=== PATIENT | male | born 1950 | race Caucasian/White ===

== ENCOUNTER 2017-10-14 20:18 | Emergency (ER) | payer BC ==
[~2017-10-14] VITALS: Ht 172.7 cm; Wt 87.1 kg
[2017-10-14 21:02] VITALS: BP 144/80; PULSE 80; RESP 20; TEMP 99.3; O2SAT 95
[2017-10-14] MEDS ORDERED: OMEP40CA2 PO (21:46)
[2017-10-14] MEDS ORDERED: LISI10TA3 PO (21:46)
[2017-10-14] MEDS ORDERED: RANI300T PO (21:46)
[2017-10-14] MEDS ORDERED: LIPI80TA PO (21:46)
[2017-10-14] MEDS ORDERED: EZET1TAB8 PO (21:46)
[2017-10-14] MEDS ORDERED: FLUO1TAB3 PO (21:46)
[2017-10-14] MEDS ORDERED: CETI10CA3 PO (22:53)
[2017-10-14] MEDS ORDERED: PRED20 PO (22:53)
[2017-10-14] MEDS ORDERED: BACT800T5 PO (22:53)
--- NOTE | 2017-10-14 22:54 | PD ---
HPI Chief Complaint: Skin Problem Time Seen by Provider: 22:41 Travel History International Travel<30 days: No Contact w/Intl Traveler<30days: No Traveled to known affect area: No History of Present Illness HPI 67-year-old male complains of scalp itching and painful. Patient states that his symptoms started 2 days ago. Patient states that the pain is burning pain localized to the scalp only. Patient denies any pain radiation. Patient denies any exposure. Patient denies any fever chills. Patient denies any other problem. Patient denies any chest pain shortness of breath. Patient denies abdominal pain. PFSH Past Medical History High Cholesterol: Yes Coronary Artery Disease: Yes Diminished Hearing: No Hypertension: Yes Immunizations Current: Yes (SHINGLES) Tetanus Vaccination: Unknown Influenza Vaccination: Yes ?: Not Past Surgical History Abdominal Surgery: Yes (UMBILICAL HERNIA) Coronary Stent: Yes Social History Alcohol Use: Yes (OCC) Tobacco Use: No Substance Use: No Allergies-Medications (Allergen,Severity, Reaction): Coded Allergies: pyrithione zinc (Verified Allergy, Severe, Itching, 10/14/17) clopidogrel (Verified Allergy, Unknown, 10/14/17) UNKNOWN metronidazole (Verified Allergy, Unknown, 10/14/17) UNKNOWN amoxicillin (Verified Adverse Reaction, Unknown, Diarrhea, 10/14/17) clavulanic acid (Verified Adverse Reaction, Unknown, Nausea/Vomiting, 10/14) Reported Meds & Prescriptions Reported Meds & Active Scripts Active Reported Ezetimibe 10 Mg Tab 10 Mg PO DAILY Ranitidine (Ranitidine HCl) 300 Mg Tab 300 Mg PO DAILY Fluoxetine (Fluoxetine HCl) 20 Mg Tab 20 Mg PO DAILY Omeprazole 40 Mg Cap 40 Mg PO DAILY Lisinopril 10 Mg Tab 10 Mg PO DAILY Lipitor (Atorvastatin Calcium) 80 Mg Tab 80 Mg PO HS Review of Systems General / Constitutional: No: Fever Eyes: No: Visual changes HENT: No: Headaches Cardiovascular: No: Chest Pain or Discomfort Respiratory: No: Shortness of Breath Gastrointestinal: No: Abdominal Pain Genitourinary: No: Dysuria Musculoskeletal: No: Pain Skin: No Rash Neurologic: No: Weakness Psychiatric: No: Depression Endocrine: No: Polydipsia Hematologic/Lymphatic: No: Easy Bruising Physical Exam Narrative GENERAL: Well-nourished, well-developed patient. SKIN: Focused skin assessment warm/dry. HEAD: Normocephalic. EYES: No scleral icterus. No injection or drainage. NECK: Supple, trachea midline. No JVD or lymphadenopathy. CARDIOVASCULAR: Regular rate and rhythm without murmurs, gallops, or rubs. RESPIRATORY: Breath sounds equal bilaterally. No accessory muscle use. GASTROINTESTINAL: Abdomen soft, non-tender, nondistended. MUSCULOSKELETAL: No cyanosis, or edema. BACK: Nontender without obvious deformity. No CVA tenderness. Patient has mild diffuse tenderness on the scalp on palpation. Scalp irritation noted. No heat. Mild redness on the scalp noted. Patient has mild clear discharge. Data Data Last Documented VS Vital Signs Date Time Temp Pulse Resp B/P (MAP) Pulse Ox O2 Delivery O2 Flow Rate FiO2 10/14/17 21:02 99.3 80 20 144/80 (101) 95 Orders Orders Dexamethasone Inj (Decadron Inj) (10/14/17 23:00) Sulfamet-Trimeth Ds 800-160 Mg (Bactrim (10/14/17 23:00) Diphenhydramine (Benadryl) (10/14/17 23:00) [facility] Medical Decision Making Medical Screen Exam Complete: Yes Emergency Medical Condition: Yes Differential Diagnosis Differential diagnosis include contact dermatitis, cellulitis. Narrative Course 67-year-old male with irritation to the scalp itching and burning. Not sure of exposure. Decadron 8 mg IM. Benadryl 25 mg p.o. Bactrim DS 1 tablet p.o. given. Diagnosis Primary Impression: Contact dermatitis Qualified Codes: L25.9 - Unspecified contact dermatitis, unspecified cause Patient Instructions: General Instructions Additional Instructions: Take medications as directed. Follow-up with personal physician. Return if worse. Med/Other Pt SpecificInfo: Prescription(s) given Scripts Sulfamethoxazole-Trimethoprim (Bactrim DS) 800-160 Mg Tab 1 TAB PO BID for Infection, #14 TAB 0 Refills Prov: Rod Long MD 10/14/17 Cetirizine HCl (Zyrtec) 10 Mg Capsule 1 TAB PO DAILY for Itching, #10 Prov: Rod Long MD 10/14/17 Prednisone (Prednisone) 20 Mg Tab 20 MG PO BID, #10 TAB 0 Refills Prov: Rod Long MD 10/14/17 Disposition: 01 DISCHARGE HOME Condition: Stable Rdo Long MD October 14, 2017 22:54
[2017-10-14] MEDS ORDERED: DEXAMETHASONE SOD PHOS 4 MG/ML VIAL IM ONE (23:00)
[2017-10-14] MEDS ORDERED: diphenhydrAMINE HCL 25 MG CAP PO ONE (23:00)
[2017-10-14] MEDS ORDERED: SULFAMETHOXAZOLE-TRIMETHOPRIM DS 800-160 MG TAB PO ONE (23:00)
== END 2017-10-14 22:58 | disposition home or self-care (01) ==
LOC: PHED 20:18 → PHEFT 22:58
DX: L25.9 Unspecified contact dermatitis, unspecified cause (principal); I25.10 Atherosclerotic heart disease of native coronary artery without angina pectoris; I10 Essential (primary) hypertension
CPT/HCPCS: 96372; 99283; J1100